=== PATIENT | female | born 1995 | race Caucasian/White ===

== ENCOUNTER 2023-09-03 17:18 | Emergency (ER) | payer BC ==
[~2023-09-03] VITALS: Ht 160 cm; Wt 63.6 kg
[2023-09-03 18:01] VITALS: BP 122/79; PULSE 80; RESP 18; TEMP 97.8; O2SAT 98
[2023-09-03] MEDS: rabies vaccine (PCEC)/PF 2.5 unit kit IMVAC ONE (18:35)
== END 2023-09-03 18:55 | disposition home or self-care (01) ==
LOC: ER 17:19
DX: Z23 Encounter for immunization (principal)
CPT/HCPCS: 90471; 90675; 99281